=== PATIENT | male | born 1960 | race Caucasian/White ===

== ENCOUNTER 2016-05-25 08:41 | Day surgery (SDC) | payer OTHER ==
[~2016-05-25] VITALS: Ht 172.7 cm; Wt 77.9 kg
[2016-05-25 09:38] VITALS: Ht 172.7 cm; Wt 77.9 kg
[2016-05-25 09:57] VITALS: BP 129/76; PULSE 53; RESP 18
[2016-05-25] MEDS ORDERED: FENTAnyl 50 MCG/ML VIAL ONE (10:40)
[2016-05-25] MEDS ORDERED: MIDAZOLAM 1 MG/ML 2 ML INJ ONE ×2 (10:40)
--- NOTE | 2016-05-25 11:16 | GILP ---
DATE OF PROCEDURE: 05/25/2016 NAME OF PROCEDURES: 1. Esophagogastroduodenoscopy and biopsy. 2. Colonoscopy and biopsy. SURGEON: Jah Pruitt MD PREOPERATIVE DIAGNOSES: 1. Abdominal pain. 2. Screening colonoscopy. POSTOPERATIVE DIAGNOSES: 1. Gastritis with erosions. 2. Gastric mucosal biopsies were taken for Helicobacter pylori test. 3. Duodenal bulb ulcer. 4. Colonoscopy all the way to the cecum. 5. Two small transverse colon polyps were removed using the biopsy forceps. 6. Internal hemorrhoids. INDICATION FOR THE PROCEDURE: The patient is a 55-year-old male patient who had abdominal pain, not responding to therapy. The patient also needed screening colonoscopy. The procedures and possible complications are well explained to the patient, he understood and conse nted to the procedure. DESCRIPTION OF PROCEDURE: Under the influence of fentanyl and Versed, the gastroscope was carefully introduced into the esophagus and under direct vision, it was advanced to the stomach and through t he pylorus into the duodenal bulb and descending duodenum. FINDINGS: ESOPHAGUS: The mucosa was normal. STOMACH: The patient had gastritis with erosions. Gastric mucosal biopsies were taken for H. pylor i test. The patient also noted to have small gastric polyps. DUODENUM: The patient had duodenal bulb ulcer. The colonoscope was carefully introduced in the rectum and under direct vision, it was advanced all the way to the cecum. FINDINGS: The patient had 2 small transverse colon polyps and they were removed using the biopsy fo rceps. He had internal hemorrhoids. He tolerated the procedures very well and there was no complication from the procedures. At the end of the procedures, he was awake with stable vital signs and he was discharged home to the care of h is family. IMPRESSION: Please see postoperative diagnosis. PLAN: 1. Omeprazole 40 mg p.o. q.a.m. 2. Await H. pylori test. 3. Screening colonoscopy in 10 years. Dictated By: JAH PRUITT MD GD/JOHN Conf#: [id number] DID#: [id number] CC: JAH PRUITT MD;*EndCC*
[2016-05-25 11:20] VITALS: BP 106/74; PULSE 50; RESP 18
== END 2016-05-25 12:05 | disposition home or self-care (01) ==
LOC: GIL 08:41
PROVIDERS: ATTEND Internal Medicine Gastroenterology
DX: Z12.11 Encounter for screening for malignant neoplasm of colon (principal); D12.3 Benign neoplasm of transverse colon; K64.8 Other hemorrhoids; K26.9 Duodenal ulcer, unspecified as acute or chronic, without hemorrhage or perforation; K29.60 Other gastritis without bleeding
CPT/HCPCS: 43239; 45380; 87081; 88305; J2250; J3010; Z7610